=== PATIENT | male | born 1975 | race Asian ===

== ENCOUNTER 2020-01-19 09:15 | Emergency (ER) | payer OTHER ==
[~2020-01-19] VITALS: Ht 152.4 cm; Wt 54.0 kg
[2020-01-19 09:32] VITALS: BP 123/78
--- NOTE | 2020-01-19 09:50 | PHYS DOC ---
Past Medical History Past Medical History: TB Past Surgical History: No Surgical History Smoking Status: Never Smoker Alcohol Use: Occasionally General Adult EDM: Chief Complaint: HEAD INJURY/TRAUMA HPI: HPI: Patient is a 44 year old non-Fijian speaking male who presents with complaining of a fall and head injury. Patient states he had a fall at the shower at 4 AM this morning (about 5 hours prior to arrival to ER) with loss of consciousness possibly for 1 or 2 minutes and laceration of back of his head. Patient denies focal neuro deficit, other injuries, nausea and vomiting, fever and chills, cough and congestion. Patient rated his pain 10/10 and denied taking any pain medication. Tetanus immunization is unknown. Review of Systems: Review of Systems: Constitutional: Denies fever or chills. [] Eyes: Denies change in visual acuity. [] HENT: Denies nasal congestion or sore throat. [] Respiratory: Denies cough or shortness of breath. [] Cardiovascular: Denies chest pain or edema. [] GI: Denies abdominal pain, nausea, vomiting, bloody stools or diarrhea. [] : Denies dysuria. [] Musculoskeletal: Denies back pain or joint pain. [] Integument: Denies rash. [] Neurologic: Denies focal weakness or sensory changes, reports headache. [] Endocrine: Denies polyuria or polydipsia. [] Lymphatic: Denies swollen glands. [] Psychiatric: Denies depression or anxiety. [] Heart Score: Risk Factors: Risk Factors: DM, Current or recent (<one month) smoker, HTN, HLP, family history of CAD, obesity. Risk Scores: Score 0 - 3: 2.5% MACE over next 6 weeks - Discharge Home Score 4 - 6: 20.3% MACE over next 6 weeks - Admit for Clinical Observation Score 7 - 10: 72.7% MACE over next 6 weeks - Early Invasive Strategies Allergies: Allergies: Allergies Coded Allergies Type Severity Reaction Last Updated Verified No Known Drug Allergies 01/19/20 No Physical Exam: PE: Constitutional: Well developed, well nourished, mild distress, non-toxic appearance. [] HENT: Normocephalic, 5 cm flap laceration of occipital area without active bleeding. Eyes: PERRLA, EOMI, conjunctiva normal, no discharge. [] Neck: Normal range of motion, no tenderness, supple, no stridor. [] Cardiovascular:Heart rate regular rhythm, no murmur [] Lungs & Thorax: Bilateral breath sounds clear to auscultation [] Abdomen: Bowel sounds normal, soft, no tenderness, no masses, no pulsatile masses. [] Skin: Warm, dry, no erythema, no rash. [] Back: No tenderness, no CVA tenderness. [] Extremities: No tenderness, no cyanosis, no clubbing, ROM intact, no edema. [] Neurologic: Alert and oriented X 3, no focal deficits noted. [] Psychologic: Affect normal, judgement normal, mood normal. [] Current Patient Data: Vital Signs: Vital Signs Date Time Temp Pulse Resp B/P (MAP) Pulse Ox O2 Delivery O2 Flow Rate FiO2 01/19/20 09:32 98.4 89 16 123/78 (93) 99 Room Air 98.4 EKG: EKG: [] Radiology/Procedures: Radiology/Procedures: [facility] [address] [place] [address] IMAGING REPORT Signed PATIENT: DEANDRE DIAZ ACCOUNT: [id number] : 1975 LOCATION: ER AGE: 44 SEX: M EXAM STATUS: REG ER ORD. PHYSICIAN: JIMBO JUNIOR MD REASON: fall PROCEDURE: CT HEAD AND CERVICAL SPINE WO EXAM: Head and cervical spine CT without contrast. HISTORY: Fall. TECHNIQUE: Computed tomographic images of the head and cervical spine were obtained without contrast. *One or more of the following individualized dose reduction techniques were utilized for this examination: 1. Automated exposure control. 2. Adjustment of the mA and/or kV according to patient size. 3. Use of iterative reconstruction technique. COMPARISON: None. FINDINGS: Head: There is no hemorrhage. There is no mass effect or midline shift. There is no hydrocephalus. The davila-white matter differentiation pattern is intact. The visualized orbits, paranasal sinuses mastoid air cells are unremarkable. There is no calvarial lesion. Cervical spine: There is no listhesis. The vertebral bodies are normal in height and the disc spaces are preserved. There is mild multilevel endplate remodeling. There is a 4 mm ossicle or osseous excrescence along the right superior body of C2. This is developmental or the sequela of remote injury. The imaging appearance does not favor an acute avulsion fracture. There is partial visualization of nodular opacity with adjacent septal line thickening at the right lung apex. At C2-C3, there is no stenosis. At C3-C4, there is a posterior central disc protrusion. There is no stenosis. At C4-C5, there is no stenosis. At C5-C6, there is a left paracentral disc protrusion and osteophyte complex. There is no stenosis. At C6-C7, there is no stenosis. IMPRESSION: 1. No acute intracranial finding or evidence of acute cervical spine trauma. 2. Right apical pulmonary nodular opacities with adjacent septal line thickening. This may be due to infiltrate or scarring. This can be better characterized with a chest radiograph or chest CT. 3. Degenerative change involving the cervical spine, described above. Electronically signed by: Toya Xiong MD (01/19/2020 10:12 AM) [facility] DICTATED and SIGNED BY: TOYA XIONG MD DATE: 01/19/20 1012 Course & Med Decision Making: Course & Med Decision Making Pertinent Imaging studies reviewed. (See chart for details) Evaluation of patient inertial 44-year-old male patient with history of a fall about 5 hours prior to arrival and questionable loss of consciousness. Patient had a 5 cm laceration of occipital area without active bleeding. Patient had unremarkable physical exam and CT head and cervical spine except for lung nodule that could be related to previous history of TB. Laceration was repaired with sindi. Patient was advised to follow-up with his primary care physician regarding abnormal finding of chest. I've spoken with the patient and/or caregivers. I've explained the patient's condition, diagnosis and treatment plan based on information available to me at this time. I've answered the patient's and/or caregivers questions and addressed any concerns. The patient and/or caregivers have a good understanding the patient's diagnosis, condition and treatment plan as can be expected at this point. Vital signs have been stabilized. The patient's condition is stable for discharge from the emergency department. The patient will pursue further outpatient evaluation with her primary care provider or other designated consulting physician as outlined in the discharge instructions. Patient and/or caregivers are agreeable to this plan of care and follow-up instructions have been explained in detail. The patient and/or caregivers have received these instructions in written format and expressed understanding of these discharge instructions. The patient and her caregivers are aware that if any significant change in condition or worsening of symptoms should prompt him to immediately return to this of the closest emergency dep artment. If an emergent department is not readily available I would encourage him to call 911. Aileen Disclaimer: Aileen Disclaimer: This electronic medical record was generated, in whole or in part, using a voice recognition dictation system. Departure Departure Impression: Primary Impression: Occipital scalp laceration Qualified Codes: S01.01XA - Laceration without foreign body of scalp, initial encounter Additional Impressions: Head injury Qualified Codes: S09.90XD - Unspecified injury of head, subsequent encounter Concussion with loss of consciousness <= 30 min Qualified Codes: S06.0X1S - Concussion with loss of consciousness of 30 minutes or less, sequela Fall as cause of accidental injury at home as place of occurrence Qualified Codes: W19.XXXD - Unspecified fall, subsequent encounter; Y92.009 - Unspecified place in unspecified non-institutional (private) residence as the place of occurrence of the external cause Disposition: 01 HOME, SELF-CARE (At 1122) Condition: IMPROVED Referrals: NO PCP (PCP) Patient Instructions: Concussion and Brain Injury, [id number], Head Injury, Adult, Staple Wound Closure, [id number] Additional Instructions: Drink plenty of liquids Follow-up with your primary care physician in 3-5 days as needed Return to ER if not getting better Keep wound clean and dry Follow-up with your primary care physician or return to ER for removal of sindi in 7 days Thank you for visiting [facility]. We appreciate you trusting us with your care. If any additional problems come up don't hesitate to return to visit us. Please follow up with your primary care provider so they can plan additional care if needed and know about the problem that you had. If symptoms worsen come back to the Emergency Department. Any concerning symptoms that start such as chest pain, shortness of air, weakness or numbness on one side of the body, running high fevers or any other concerning symptoms return to the ER. Scripts Hydrocodone/Apap 5-325 (NORCO 5-325 TABLET) 1 Each Tablet 1 TAB PO PRN Q6HRS PRN for PAIN, #10 TAB 0 Refills Prov: JIMBO JUNIOR MD 01/19/20 Laceration Repair Lac Repair Indication: Occipital scalp laceration Procedure: The patient was placed in the appropriate position and scalp laceration was repaired with 6 sindi without local anesthesia. Total repaired wound length: 5 centimeters Other Items: None The patient tolerated the procedure well. Complications: None. JIMBO JUNIOR MD Jan 19, 2020 09:50
[2020-01-19] MEDS ORDERED: DIPH,PERTUSS(ACELL),TET VAC/PF 0.5 ML SYRINGE. VAX IM ONE (10:00)
--- NOTE | 2020-01-19 10:15 | RAD ---
EXAM: Head and cervical spine CT without contrast. HISTORY: Fall. TECHNIQUE: Computed tomographic images of the head and cervical spine were obtained without contrast. *One or more of the following individualized dose reduction techniques were utilized for this examination: 1. Automated exposure control. 2. Adjustment of the mA and/or kV according to patient size. 3. Use of iterative reconstruction technique. COMPARISON: None. FINDINGS: Head: There is no hemorrhage. There is no mass effect or midline shift. There is no hydrocephalus. The davila-white matter differentiation pattern is intact. The visualized orbits, paranasal sinuses mastoid air cells are unremarkable. There is no calvarial lesion. Cervical spine: There is no listhesis. The vertebral bodies are normal in height and the disc spaces are preserved. There is mild multilevel endplate remodeling. There is a 4 mm ossicle or osseous excrescence along the right superior body of C2. This is developmental or the sequela of remote injury. The imaging appearance does not favor an acute avulsion fracture. There is partial visualization of nodular opacity with adjacent septal line thickening at the right lung apex. At C2-C3, there is no stenosis. At C3-C4, there is a posterior central disc protrusion. There is no stenosis. At C4-C5, there is no stenosis. At C5-C6, there is a left paracentral disc protrusion and osteophyte complex. There is no stenosis. At C6-C7, there is no stenosis. IMPRESSION: 1. No acute intracranial finding or evidence of acute cervical spine trauma. 2. Right apical pulmonary nodular opacities with adjacent septal line thickening. This may be due to infiltrate or scarring. This can be better characterized with a chest radiograph or chest CT. 3. Degenerative change involving the cervical spine, described above. Electronically signed by: Toya Baez MD (01/19/2020 10:12 AM) [facility]
[2020-01-19] MEDS ORDERED: HYDR-3164 PO (11:24)
[2020-01-19] MEDS ORDERED: HYDROcodone/APAP 5/325MG 1 TAB TABLET PO ONE (11:30)
== END 2020-01-19 11:44 | disposition home or self-care (01) ==
LOC: ER 09:15
DX: S01.01XA Laceration without foreign body of scalp, initial encounter (principal); S06.0X1A Concussion with loss of consciousness of 30 minutes or less, initial encounter; W19.XXXA Unspecified fall, initial encounter; Y93.89 Activity, other specified; Y92.89 Other specified places as the place of occurrence of the external cause; Y99.8 Other external cause status
CPT/HCPCS: 12002; 70450; 72125; 90471; 90715; 99285

== ENCOUNTER 2020-01-25 11:06 | Emergency (ER) | payer OTHER ==
[~2020-01-25] VITALS: Ht 160 cm; Wt 40.0 kg
[~2020-01-25 11:06] MED LIST: HYDR-3164 PO
[2020-01-25 11:09] VITALS: BP 118/69
--- NOTE | 2020-01-25 11:27 | PHYS DOC ---
Past Medical History Past Medical History: TB (MEGAN CARVAJAL APRN) Past Surgical History: No Surgical History (MEGAN CARVAJAL APRN) Smoking Status: Never Smoker Alcohol Use: Occasionally (MEGAN CARVAJAL APRN) General Adult EDM: Chief Complaint: SUTURE/STAPLE REMOVAL HPI: HPI: Patient is a 44 year old male who presents to the emergency department with need for staple removal. Patient states he has 6 sindi to the back of his head. He denies any pain, drainage, bleeding, or warmth at the site. Patient denies any complaints or pain at this time. (MEGAN CARVAJAL APRN) Review of Systems: Review of Systems: Complete ROS is negative unless otherwise noted in HPI. (MEGAN CARVAJAL APRN) Heart Score: Risk Factors: Risk Factors: DM, Current or recent (<one month) smoker, HTN, HLP, family history of CAD, obesity. Risk Scores: Score 0 - 3: 2.5% MACE over next 6 weeks - Discharge Home Score 4 - 6: 20.3% MACE over next 6 weeks - Admit for Clinical Observation Score 7 - 10: 72.7% MACE over next 6 weeks - Early Invasive Strategies (MEGAN CARVAJAL APRN) Allergies: Allergies: Allergies Coded Allergies Type Severity Reaction Last Updated Verified No Known Drug Allergies 01/19/20 No (MEGAN CARVAJAL APRN) Physical Exam: PE: Constitutional: Well developed, well nourished, no acute distress, non-toxic appearance. [] HENT: Normocephalic, atraumatic, bilateral external ears normal, ose normal. [] Eyes: PERRLA, EOMI, conjunctiva normal, no discharge. [] Neck: Normal range of motion, no stridor. [] Lungs & Thorax: Respirations even and unlabored, no retractions, no respiratory distress Skin: Warm, dry, no erythema, no rash; healed laceration to posterior scalp without evidence of wound dehiscence, no erythema, no drainage, edges are well approximated Extremities: No cyanosis, ROM intact Neurologic: Alert and oriented X 3, no focal deficits noted. [] Psychologic: Affect normal, judgement normal, mood normal. [] (MEGAN CARVAJAL APRN) EKG: EKG: [] (MEGAN CARVAJAL APRN) Radiology/Procedures: Radiology/Procedures: Sick sindi were removed from the posterior scalp by nursing staff, see their note for details. No complications. [] (MEGAN CARVAJAL APRN) Course & Med Decision Making: Course & Med Decision Making Pertinent Labs and Imaging studies reviewed. (See chart for details) [] (MEGAN CARVAJAL APRN) Dragon Disclaimer: Dragon Disclaimer: This electronic medical record was generated, in whole or in part, using a voice recognition dictation system. (MEGAN CARVAJAL APRN) Departure Departure Impression: Primary Impression: Encounter for staple removal Disposition: HOME, SELF-CARE Condition: STABLE Referrals: NO PCP (PCP) Patient Instructions: Staple Removal, Care After Additional Instructions: Take Tylenol or ibuprofen as needed for pain. Follow-up with your primary care doctor as needed. Return to the ER symptoms worsen or you develop a fever. MEGAN CARVAJAL APRN Jan 25, 2020 11:27 ARELIS COE DO Jan 28, 2020 07:16
== END 2020-01-25 11:33 | disposition home or self-care (01) ==
LOC: ER 11:06
DX: S01.01XD Laceration without foreign body of scalp, subsequent encounter (principal); W19.XXXD Unspecified fall, subsequent encounter
CPT/HCPCS: 99281; 99282

== ENCOUNTER 2020-06-23 12:53 | Emergency (ER) | payer OTHER ==
[~2020-06-23] VITALS: Ht 162.6 cm; Wt 52.3 kg
[2020-06-23 14:06] VITALS: BP 130/83
[2020-06-23] MEDS ORDERED: NAPR-514 PO (14:21)
[2020-06-23] MEDS ORDERED: CLIN150C14 PO (14:21)
--- NOTE | 2020-06-23 14:22 | PHYS DOC ---
Past Medical History Past Medical History: TB Past Surgical History: No Surgical History Smoking Status: Never Smoker Alcohol Use: Occasionally General Adult EDM: Chief Complaint: TOE PROBLEM HPI: HPI: Patient is a 45 year old Kiswahili male who presents to the emergency department with complaints of left great toe injury for the last 2 days. Patient states he accidentally kicked the stairs and lost his toenail. He states that he needs a work excuse. He denies any fever. He currently rates the pain a 10/10 on the pain scale. Review of Systems: Review of Systems: Constitutional: Denies fever or chills. [] Musculoskeletal: Denies joint pain. [] Integument: see HPI Heart Score: Risk Factors: Risk Factors: DM, Current or recent (<one month) smoker, HTN, HLP, family history of CAD, obesity. Risk Scores: Score 0 - 3: 2.5% MACE over next 6 weeks - Discharge Home Score 4 - 6: 20.3% MACE over next 6 weeks - Admit for Clinical Observation Score 7 - 10: 72.7% MACE over next 6 weeks - Early Invasive Strategies Allergies: Allergies: Allergies Coded Allergies Type Severity Reaction Last Updated Verified No Known Drug Allergies 01/19/20 No Physical Exam: PE: Constitutional: Well developed, well nourished, no acute distress, non-toxic appearance. [] HENT: Normocephalic, atraumatic, bilateral external ears normal, nose normal. [] Eyes: PERRLA, EOMI, conjunctiva normal, no discharge. [] Neck: Normal range of motion, no stridor. [] Cardiovascular:Heart rate regular rhythm Lungs & Thorax: Respirations even and unlabored, no retractions, no respiratory distress Skin: Left great toe: Avulsed toenail with purulent foul-smelling drainage present over the nailbed, warm, dry, no erythema, no rash. [] Extremities: No cyanosis, ROM intact, no edema. [] Neurologic: Alert and oriented X 3, no focal deficits noted. [] Psychologic: Affect normal, judgement normal, mood normal. [] EKG: EKG: [] Radiology/Procedures: Radiology/Procedures: [] Course & Med Decision Making: Course & Med Decision Making Pertinent Labs and Imaging studies reviewed. (See chart for details) [] Dragon Disclaimer: Dragon Disclaimer: This electronic medical record was generated, in whole or in part, using a voice recognition dictation system. Departure Departure Impression: Primary Impression: Traumatic loss of toenail of left great toe Qualified Codes: S91.202A - Unspecified open wound of left great toe with damage to nail, initial encounter Additional Impression: Open wound of toe with avulsion of toenail Qualified Codes: S91.209A - Unspecified open wound of unspecified toe(s) with damage to nail, initial encounter Disposition: HOME, SELF-CARE Condition: STABLE Referrals: NO PCP (PCP) Patient Instructions: Cellulitis, [id number], Fingernail or Toenail Loss Additional Instructions: Fill the prescriptions and use it as directed. You may also take Tylenol as needed for pain recommend warm Epson salt soaks 3-4 times a day and as needed for comfort. Follow-up with your primary care doctor next week to have the site rechecked, return to the ER if symptoms worsen or you develop a fever. Scripts Naproxen (NAPROXEN) 500 Mg Tablet 1 TAB PO BID PRN for PAIN for 10 Days, #20 TAB 0 Refills Prov: MEGAN CARVAJAL APRN 06/23/20 Clindamycin Hcl (CLINDAMYCIN HCL) 150 Mg Capsule 450 MG PO TID for 7 Days, #63 CAP 0 Refills Prov: MEGAN CARVAJAL APRN 06/23/20 Justicifation of Admission Dx: Justifications for Admission: Justification of Admission Dx: N/A MEGAN CARVAJAL APRN Jun 23, 2020 14:22
== END 2020-06-23 14:33 | disposition home or self-care (01) ==
LOC: ER 12:53
DX: S91.202A Unspecified open wound of left great toe with damage to nail, initial encounter (principal); W22.8XXA Striking against or struck by other objects, initial encounter; Y93.89 Activity, other specified; Y92.89 Other specified places as the place of occurrence of the external cause; Y99.8 Other external cause status
CPT/HCPCS: 99283